=== PATIENT | female | born 1940 | race Caucasian/White ===

== ENCOUNTER 2024-11-21 14:16 | Inpatient (IN) ==
--- NOTE | 2024-11-21 15:02 | Emergency Department Note ---
Impression & Plan Acute UTI, Weakness, Confusion ED Provider Note Provider: Willie Puckett MD CHIEF COMPLAINT: Transient confusion and speech issues HISTORY OF PRESENT ILLNESS: Patient is a 84-year-old female history of hypertension presenting here today with family from a family reunion. Patient from the [place] area. Patient reports that this morning since around 8 AM she has had 2 episodes where she has had issues with speech and that she feels fatigued and maybe had some dizziness. Currently her speech is okay. Not had numbness or focal weakness. Some generalized weakness. Family states seems like at times he is a hard time getting her words out. Not syncopized or having chest pain. Evidently had an episode like this some years ago related to a UTI but denies urinary symptoms. Denies fever or cough. States her eyes still feel somewhat heavy. PAST MEDICAL HISTORY: As noted above MEDICATIONS: Reviewed medication list the patient presents with SOCIAL HISTORY: Lives in [place] PHYSICAL EXAM: GENERAL: alert and oriented in no acute distress on stretcher Head: normocephalic and atraumatic EYES: No injection, discharge or icterus. EOMI. NECK: Trachea midline. Good range of motion ENT: Mucous membranes pink and moist. LUNGS: Airway patent. No retractions. Breath sounds clear with good air entry bilaterally. HEART: Regular rate and rhythm. No chest wall tenderness ABDOMEN: Soft and non-tender, without guarding or rebound. SKIN: Acyanotic, warm, dry, without rashes EXTREMITIES: Without tenderness with 1+ bilateral lower extremity edema. NEUROLOGICAL: No focal deficits. No aphasia. No facial droop or slurred speech. Normal strength and tone in the extremities. Sensation to gross touch normal. Ambulatory. EK bpm sinus rhythm with sinus arrhythmia. No PVC. Some PACs. No acute ST segment elevation or depression. QTc 446. EK bpm normal sinus rhythm. No PVC or PAC. No acute ST segment elevation or depression with nonspecific T wave flattening. CONTINUOUS CARDIAC MONITORING: was ordered and showed a heart rate of 60s bpm in normal sinus rhythm with sinus arrhythmia Patient's laboratory studies and imaging reviewed. Differential includes Infection, dehydration, metabolic abnormality, hypo/hyperglycemia, electrolyte disturbance, anemia, hypoxia, cardiac sources, intracerebral event, toxicologic, neurologic, as well as other pathologies. IMPRESSION/MEDICAL DECISION MAKING: Patient with some transient aphasia by report but no other numbness or weakness. Has had some slight dizziness. Still feeling somewhat fatigued. Symptoms of some slight fatigue upon arrival but no other deficits reported. Given improvement did not make a stroke alert. Question possible TIA versus metabolic infectious abnormality. Labs are sent including urinalysis. CT of the head and CT angiograms were ordered. Blood work here without significant anemia or leukocytosis. No sick electrolyte abnormality signs of acute renal dysfunction. Urinalysis questions infection. Will cover with dose ceftriaxone for antibiotic coverage. No prior microbiology in the computer. May be causing her symptoms. CTs are completed and reports reviewed without significant vascular abnormality or intracranial hemorrhage abnormality. Incidental thyroid nodule noted recommended for follow-up. Did have a little bit of heartburn symptoms and increased dizziness and acid second EKG was obtained without significant finding. Given the waxing and waning the skin could be all related to the infection from the UTI but she does not appear septic. Family reports she has a history of somewhat similar with UTIs that have been difficult to clear in the past. No focal findings just generalized weakness and some slight confusion at times.. Recommend further evaluation or monitoring here as she lives alone to ensure she is improved. Discussed with patient and her family at bedside. They very much agree with this plan. Hospitalist team was consulted. DIAGNOSIS: Acute UTI, confusion/fatigue/weakness DISPOSITION: Hospitalist will evaluate Patient was agreeable with this plan. Past Med/Surg History Problem List (Updated 11/21/24 @ 17:19 by Willie Puckett M.D.) Confusion (Acute) Weakness (Acute) Acute UTI (Acute) Social History Smoking Status: Never smoker Feels Safe at Home: Yes Allergies Allergies Allergy/AdvReac Type Severity Reaction Status Date / Time amoxicillin Allergy Hives Verified 11/21/24 16:43 Home Meds Home Medications Medication Instructions Recorded Confirmed ascorbic acid (vitamin C) 250 mg 250 mg PO DAILY 11/21/24 11/21/24 tablet (Vitamin C) atorvastatin 10 mg tablet 10 mg PO DAILY 11/21/24 11/21/24 cholecalciferol (vitamin D3) 50 50 mcg PO DAILY 11/21/24 11/21/24 mcg (2,000 unit) tablet (Vitamin D3) escitalopram oxalate 10 mg tablet 10 mg PO DAILY 11/21/24 11/21/24 montelukast 10 mg tablet 10 mg PO HS 11/21/24 11/21/24 omeprazole 20 mg capsule,delayed 20 mg PO DAILY 11/21/24 11/21/24 release valsartan 80 mg tablet 80 mg PO DAILY 11/21/24 11/21/24 vitamin E (dl, acetate) 180 mg 180 mg PO DAILY 11/21/24 11/21/24 (400 unit) capsule Results & Data (ED) Vital Signs Vital Signs - 24 hr 11/21/24 14:17 11/21/24 14:25 11/21/24 14:46 Temperature 36.9 C Temperature Source Oral Pulse Rate 81 Pulse Rate [Right Brachial] 66 Pulse Rate from SpO2 Sensor Pulse Rhythm [Right Brachial] Regular Pulse Strength [Right Brachial] Normal Respiratory Rate 18 18 Respiratory Effort / Characteristics Non-Labored Respiratory Depth Normal Respiratory Pattern Regular Blood Pressure 152/68 H Blood Pressure [Right Arm] 129/75 Blood Pressure Mean 96 Blood Pressure Mean [Right Arm] 93 Blood Pressure Position Sitting Blood Pressure Position [Right Arm] Lying Pulse Oximetry 96 94 Oxygen Delivery Method Room Air Room Air Room Air Sepsis Recent Fever Within 48 Hours No Sepsis New/Unexplained Change in Mental Status Yes Sepsis Action Taken by Nursing No Action Required 11/21/24 15:12 11/21/24 15:20 11/21/24 15:21 Temperature Temperature Source Pulse Rate 69 65 67 Pulse Rate [Right Brachial] Pulse Rate from SpO2 Sensor 69 70 Pulse Rhythm [Right Brachial] Pulse Strength [Right Brachial] Respiratory Rate 31 H 15 Respiratory Effort / Characteristics Respiratory Depth Respiratory Pattern Blood Pressure 115/65 Blood Pressure [Right Arm] Blood Pressure Mean 83 Blood Pressure Mean [Right Arm] Blood Pressure Position Blood Pressure Position [Right Arm] Pulse Oximetry 91 95 Oxygen Delivery Method Sepsis Recent Fever Within 48 Hours Sepsis New/Unexplained Change in Mental Status Sepsis Action Taken by Nursing 11/21/24 15:30 11/21/24 15:46 11/21/24 15:48 Temperature Temperature Source Pulse Rate 63 65 86 Pulse Rate [Right Brachial] Pulse Rate from SpO2 Sensor 63 65 73 Pulse Rhythm [Right Brachial] Pulse Strength [Right Brachial] Respiratory Rate 12 13 16 Respiratory Effort / Characteristics Respiratory Depth Respiratory Pattern Blood Pressure 115/66 130/67 122/78 Blood Pressure [Right Arm] Blood Pressure Mean 94 80 92 Blood Pressure Mean [Right Arm] Blood Pressure Position Blood Pressure Position [Right Arm] Pulse Oximetry 93 91 92 Oxygen Delivery Method Sepsis Recent Fever Within 48 Hours Sepsis New/Unexplained Change in Mental Status Sepsis Action Taken by Nursing 11/21/24 16:15 11/21/24 16:21 11/21/24 16:30 Temperature Temperature Source Pulse Rate 64 132 H 62 Pulse Rate [Right Brachial] Pulse Rate from SpO2 Sensor 69 110 H 62 Pulse Rhythm [Right Brachial] Pulse Strength [Right Brachial] Respiratory Rate 14 17 14 Respiratory Effort / Characteristics Respiratory Depth Respiratory Pattern Blood Pressure 132/68 135/66 Blood Pressure [Right Arm] Blood Pressure Mean 86 101 Blood Pressure Mean [Right Arm] Blood Pressure Position Blood Pressure Position [Right Arm] Pulse Oximetry 95 93 95 Oxygen Delivery Method Sepsis Recent Fever Within 48 Hours Sepsis New/Unexplained Change in Mental Status Sepsis Action Taken by Nursing Laboratory Data 11/21/24 15:07 11/21/24 15:07 Lab Results 11/21/24 11/21/24 11/21/24 Range/Units 14:57 15:07 15:12 WBC 7.33 (4.8-10.8) K/ul RBC 4.91 (4.20-5.40) M/uL Hgb 14.2 (12.0-16.0) g/dl POC Hgb 14.3 (12.0-16.0) g/dl Hct 42.0 (37.0-47.0) % POC Hct 42 (37-47) % MCV 85.5 (80.0-100.0) fL MCH 28.9 (25.0-34.0) pg MCHC 33.8 (32.0-36.0) g/dL RDW Std Deviation 43.6 (36.4-46.3) fL RDW Coeff of Kenny 14.0 (11.5-14.5) % Plt Count 238 (130-400) K/uL MPV 10.9 (9.4-12.4) fL Immature Gran % (Auto) 0.3 % Neut % (Auto) 74.6 % Lymph % (Auto) 16.8 % [place] % (Auto) 6.1 % Eos % (Auto) 1.5 % Baso % (Auto) 0.7 % Neut # (Auto) 5.47 (1.40-6.50) K/uL Lymph # (Auto) 1.23 (1.20-3.40) K/uL [place] # (Auto) 0.45 (0.11-0.59) K/uL Eos # (Auto) 0.11 (0.00-0.50) K/uL Baso # (Auto) 0.05 (0.00-0.20) K/uL Immature Gran # (Auto) 0.02 (0.01-0.20) K/uL PT 12.3 H (9.0-12.0) Seconds INR 1.2 H (0.9-1.1) APTT 28 (21-31) Seconds PTT Ratio 1.0 POC Sodium 137 (135-144) mmol/L Sodium 136 (136-145) mmol/L POC Potassium 3.9 (3.3-5.0) mmol/L Potassium 4.0 (3.5-5.1) mmol/L POC Chloride 104 (101-112) mmol/L Chloride 103 (98-107) mmol/L Carbon Dioxide 25 (21-32) mmol/L POC Total CO2 24 (24-31) mmol/L Anion Gap 8 (3-11) POC Anion Gap 13.0 L (16-25) mmol/L POC BUN 18 (7-18) mg/dl BUN 18 (6-23) mg/dl Creatinine 0.89 (0.6-1.2) mg/dl POC Creatinine 0.9 (0.6-1.3) mg/dl Est Cr Clr Drug Dosing 45.1 ml/min eGFR 63.89 BUN/Creatinine Ratio 20.2 H (10-20) Glucose 148 H (70-99(Fasting)) mg/dl POC Glucose 148 H (70-99) mg/dl POC Glucose (other) 150 H (70-99) mg/dl Calcium 9.1 (8.6-10.3) mg/dl POC Ioniz Calcium Donal 1.11 L (1.12-1.32) mmol/l Magnesium 2.0 (1.7-2.4) mg/dl Total Bilirubin 0.4 (0.2-1.0) mg/dl AST 19 (13-39) U/L ALT 15 (7-52) U/L Alkaline Phosphatase 67 (34-104) U/L Troponin I High Sens 5.2 (0-14) pg/ml Total Protein 6.8 (6.0-8.3) gm/dl Albumin 3.8 (3.4-5.0) gm/dl Globulin 3.0 (2.5-4.0) gm/dl Albumin/Globulin Ratio 1.3 (0.9-2) Urine Color Yellow Urine Appearance Clear (Clear) Urine pH 6.0 (4.5-7.5) Ur Specific [place] 1.019 (1.000-1.030) Urine Protein Negative (Negative) Urine Glucose (UA) Negative (Negative) Urine Ketones Trace H (Negative) Urine Blood Negative (Negative) Urine Nitrite Negative (Negative) Urine Bilirubin Negative (Negative) Urine Urobilinogen Negative (Negative) Ur Leukocyte Esterase 2+ H (Negative) Urine WBC (Auto) 6-10 H (0-5) /hpf Urine RBC (Auto) 0-2 (0-2) /hpf U Hyaline Cast (Auto) 0-2 (0-2) /lpf U Epithel Cells (Auto) 0-2 (0-2) /hpf Urine Bacteria (Auto) None Seen (None Seen) Urine Comment Administered Medications Discontinued Medications Ioversol (Optiray 320 125ml) 119 ml IV ONCE ONE Stop: 11/21/24 16:05 Last Admin: 11/21/24 16:05 Dose: 119 ml Documented By: MAURO Imaging Data Radiologist's Impression: Head CT 11/21/24 14:[address] without contrast CT angiogram of the neck CT angiogram of the brain with contrast Provided History: Neuro deficit Comparison: None Technique: HEAD CT: Using multidetector thin collimation helical acquisition technique, axial, coronal and sagittal CT images from the skull base to the vertex were obtained without intravenous contrast. HEAD and NECK CTA: During rapid bolus intravenous injection of nonionic contrast material, axial images were obtained using thin collimation multidetector helical technique from the base of the neck through the of vertex of the head. This CT angiogram data was reconstructed at thin intervals with mild overlap. 3D reconstructions were obtained. The axial source images, multiplanar reformations, 3D reconstructions in both maximum intensity projection display and volume rendered models were reviewed. Dose reduction techniques were achieved by using automatic exposure control and/or adjustment of mA and/or kV according to patient size and/or use of iterative reconstruction technique. Findings: Head CT: There is no intracranial hemorrhage, mass effect, or midline shift. Hill/white matter differentiation in both cerebral hemispheres is preserved. Ventricles are proportionate to the cerebral sulci. Chronic calcifications in the basal ganglia and cerebellum. Head CTA demonstrates no aneurysm or stenosis of the major intracranial arteries. Neck CTA demonstrates no stenosis of the major cervical arteries. The origins of the great vessels from the aortic arch are patent. No mass is noted within the visualized portions of the cervical soft tissues or lung apices. Heterogeneous enlargement of the right thyroid gland, which measures 3.5 cm in diameter. Recommend follow-up thyroid ultrasound. Impression: 1. Head CTA demonstrates no aneurysm or stenosis of the major intracranial arteries, 2. Neck CTA demonstrates no stenosis of the major cervical arteries. 3. No intracranial hemorrhage on the noncontrast head CT. 4. Recommend follow-up thyroid ultrasound. Electronically signed by Dylon Head 11-21-2024 5:08 PM Head CTA 11/21/24 14:[address] without contrast CT angiogram of the neck CT angiogram of the brain with contrast Provided History: Neuro deficit Comparison: None Technique: HEAD CT: Using multidetector thin collimation helical acquisition technique, axial, coronal and sagittal CT images from the skull base to the vertex were obtained without intravenous contrast. HEAD and NECK CTA: During rapid bolus intravenous injection of nonionic contrast material, axial images were obtained using thin collimation multidetector helical technique from the base of the neck through the of vertex of the head. This CT angiogram data was reconstructed at thin intervals with mild overlap. 3D reconstructions were obtained. The axial source images, multiplanar reformations, 3D reconstructions in both maximum intensity projection display and volume rendered models were reviewed. Dose reduction techniques were achieved by using automatic exposure control and/or adjustment of mA and/or kV according to patient size and/or use of iterative reconstruction technique. Findings: Head CT: There is no intracranial hemorrhage, mass effect, or midline shift. Hill/white matter differentiation in both cerebral hemispheres is preserved. Ventricles are proportionate to the cerebral sulci. Chronic calcifications in the basal ganglia and cerebellum. Head CTA demonstrates no aneurysm or stenosis of the major intracranial arteries. Neck CTA demonstrates no stenosis of the major cervical arteries. The origins of the great vessels from the aortic arch are patent. No mass is noted within the visualized portions of the cervical soft tissues or lung apices. Heterogeneous enlargement of the right thyroid gland, which measures 3.5 cm in diameter. Recommend follow-up thyroid ultrasound. Impression: 1. Head CTA demonstrates no aneurysm or stenosis of the major intracranial arteries, 2. Neck CTA demonstrates no stenosis of the major cervical arteries. 3. No intracranial hemorrhage on the noncontrast head CT. 4. Recommend follow-up thyroid ultrasound. Electronically signed by Dylon Head 11-21-2024 5:08 PM Neck CTA 11/21/24 14:[address] without contrast CT angiogram of the neck CT angiogram of the brain with contrast Provided History: Neuro deficit Comparison: None Technique: HEAD CT: Using multidetector thin collimation helical acquisition technique, axial, coronal and sagittal CT images from the skull base to the vertex were obtained without intravenous contrast. HEAD and NECK CTA: During rapid bolus intravenous injection of nonionic contrast material, axial images were obtained using thin collimation multidetector helical technique from the base of the neck through the of vertex of the head. This CT angiogram data was reconstructed at thin intervals with mild overlap. 3D reconstructions were obtained. The axial source images, multiplanar reformations, 3D reconstructions in both maximum intensity projection display and volume rendered models were reviewed. Dose reduction techniques were achieved by using automatic exposure control and/or adjustment of mA and/or kV according to patient size and/or use of iterative reconstruction technique. Findings: Head CT: There is no intracranial hemorrhage, mass effect, or midline shift. Hill/white matter differentiation in both cerebral hemispheres is preserved. Ventricles are proportionate to the cerebral sulci. Chronic calcifications in the basal ganglia and cerebellum. Head CTA demonstrates no aneurysm or stenosis of the major intracranial arteries. Neck CTA demonstrates no stenosis of the major cervical arteries. The origins of the great vessels from the aortic arch are patent. No mass is noted within the visualized portions of the cervical soft tissues or lung apices. Heterogeneous enlargement of the right thyroid gland, which measures 3.5 cm in diameter. Recommend follow-up thyroid ultrasound. Impression: 1. Head CTA demonstrates no aneurysm or stenosis of the major intracranial arteries, 2. Neck CTA demonstrates no stenosis of the major cervical arteries. 3. No intracranial hemorrhage on the noncontrast head CT. 4. Recommend follow-up thyroid ultrasound. Electronically signed by Dylon Head 11-21-2024 5:08 PM Discharge Plan Visit Data Chief Complaint: Confusion Stated Complaint: DIZZY, LIGHTHEADED, CONFUSED ED Provider: Willie Puckett Discharge Problem: Acute UTI, Weakness, Confusion Patient Disposition: Being Evaluated by Hospitalist Condition: Fair Forms Stand Alone Forms: [facility] Prescriptions Prescriptions: No Action atorvastatin 10 mg tablet 10 mg PO DAILY valsartan 80 mg tablet 80 mg PO DAILY ascorbic acid (vitamin C) [Vitamin C] 250 mg Tablet 250 mg PO DAILY omeprazole 20 mg capsule,delayed release(DR/EC) 20 mg PO DAILY montelukast 10 mg tablet 10 mg PO HS escitalopram oxalate 10 mg tablet 10 mg PO DAILY cholecalciferol (vitamin D3) [Vitamin D3] 50 mcg (2,000 unit) Tablet 50 mcg PO DAILY vitamin E (dl, acetate) 180 mg (400 unit) Capsule 180 mg PO DAILY Referrals Referrals: PCP,NO [Physician] -
[2024-11-21 15:23] LABS: Hematocrit (blood only) 42.0 % (37.0-47.0); Hemoglobin 14.2 g/dl (12.0-16.0); Immature Granulocytes # (auto) 0.02 K/uL (0.01-0.20); Immature Granulocytes % (auto) 0.3 %; Mean Corpuscular Hemoglobin 28.9 pg (25.0-34.0); Mean Corpuscular Volume 85.5 fL (80.0-100.0); Platelet Count 238 K/uL (130-400); RDW Standard Deviation 43.6 fL (36.4-46.3); Red Blood Count 4.91 M/uL (4.20-5.40); White Blood Count 7.33 K/ul (4.8-10.8)
[2024-11-21 15:40] LABS: Alanine Aminotransferase 15.0 U/L (7-52); Albumin Globulin Ratio 1.3 (0.9-2); Albumin Level 3.8 gm/dl (3.4-5.0); Alkaline Phosphatase 67.0 U/L (34-104); Anion Gap 8.0 (3-11); Bilirubin,Total 0.4 mg/dl (0.2-1.0); Blood Urea Nitrogen 18.0 mg/dl (6-23); Calcium 9.1 mg/dl (8.6-10.3); Carbon Dioxide 25.0 mmol/L (21-32); Chloride 103.0 mmol/L (98-107); Creatinine Clr Calc Pharmacy 45.1 ml/min; Globulin 3.0 gm/dl (2.5-4.0); Glucose 148.0 mg/dl (70-99(Fasting)); Magnesium 2.0 mg/dl (1.7-2.4); Potassium 4.0 mmol/L (3.5-5.1); Sodium 136.0 mmol/L (136-145); Total Protein 6.8 gm/dl (6.0-8.3)
[2024-11-21 15:43] LABS: Appearance Urine Clear (Clear); Bacteria Urine Automated None Seen (None Seen); Cast Urine Automated 0-2 /lpf (0-2); Epithelial Cell Urine Auto 0-2 /hpf (0-2); Glucose Urine UA Negative (Negative); RBC Urine Automated 0-2 /hpf (0-2)
[2024-11-21] MEDS: OPTIRAY 320 125ml IV ONE (16:05)
[2024-11-21 16:12] LABS: INR 1.2 (0.9-1.1); Partial Thromboplastin Time 28 Seconds (21-31); Prothrombin Time 12.3 Seconds (9.0-12.0)
--- NOTE | 2024-11-21 17:08 | CT Scan Report ---
Head CT without contrast CT angiogram of the neck CT angiogram of the brain with contrast Provided History: Neuro deficit Comparison: None Technique: HEAD CT: Using multidetector thin collimation helical acquisition technique, axial, coronal and sagittal CT images from the skull base to the vertex were obtained without intravenous contrast. HEAD and NECK CTA: During rapid bolus intravenous injection of nonionic contrast material, axial images were obtained using thin collimation multidetector helical technique from the base of the neck through the of vertex of the head. This CT angiogram data was reconstructed at thin intervals with mild overlap. 3D reconstructions were obtained. The axial source images, multiplanar reformations, 3D reconstructions in both maximum intensity projection display and volume rendered models were reviewed. Dose reduction techniques were achieved by using automatic exposure control and/or adjustment of mA and/or kV according to patient size and/or use of iterative reconstruction technique. Findings: Head CT: There is no intracranial hemorrhage, mass effect, or midline shift. Hill/white matter differentiation in both cerebral hemispheres is preserved. Ventricles are proportionate to the cerebral sulci. Chronic calcifications in the basal ganglia and cerebellum. Head CTA demonstrates no aneurysm or stenosis of the major intracranial arteries. Neck CTA demonstrates no stenosis of the major cervical arteries. The origins of the great vessels from the aortic arch are patent. No mass is noted within the visualized portions of the cervical soft tissues or lung apices. Heterogeneous enlargement of the right thyroid gland, which measures 3.5 cm in diameter. Recommend follow-up thyroid ultrasound. Impression: 1. Head CTA demonstrates no aneurysm or stenosis of the major intracranial arteries, 2. Neck CTA demonstrates no stenosis of the major cervical arteries. 3. No intracranial hemorrhage on the noncontrast head CT. 4. Recommend follow-up thyroid ultrasound. Electronically signed by Dylon Head 11-21-2024 5:08 PM
--- NOTE | 2024-11-21 17:42 | History & Physical Report ---
Date of Service November 21, 2024 Assessment & Plan (1) Confusion: (2) Weakness: Plan The patient is an 84-year-old female who presented to the ED on 11/21/24 with concerns for episodes of confusion and expressive aphasia Rule out TIA/CVA: Differential diagnosis also includes seizures with intermittent episodes and aura Will check EEG, MRI brain with and without contrast, echo, stroke protocol Permissive hypertension, neurology consultation; NIH on exam 0; Daily aspirin started Head/neck CTA and head CT unremarkable; atorvastatin increased to 40 mg daily Also reports recent stroke workup 6 months ago for confusion which was negative Recurrent UTIs: Urinalysis today unremarkable, check bladder scans every shift Hx HTN: Managed on valsartan at home, can continue in the next 24 hours Incidental findings: Thyroid nodule Noted in neck CTA, history of thyroid cancer, thyroid ultrasound ordered Check TSH level in a.m. A total of 45 minutes was spent on chart review/reviewing diagnostic data/facilitating plan of care/discussion with consultants Full code DVT prophylaxis: Lovenox History of Present Illness Chief Complaint: Confusion, expressive aphasia Primary Care Provider: Rohini Ochoa PA-C The patient is a 84-year-old female with a past medical history of vitamin D deficiency, anxiety, asthma, GERD, thyroid ca s/p partial thyroidectomy - 20 years ago, HTN who presents to the ED on 11/21/24 with concerns of expressive aphasia and confusion. Pt reports that she had an "episode" this morning around 8 am where she feels confused and foggy. She is able to understand but unable to answer questions for a few minutes. She reports having spells like this every once in a while, last time it was a few months ago when she had a UTI. She reports it feeling like a hot spell before the episode starts. Denies any head trauma or seizures in the past. Reports being started on antibiotics for 2 months to prevent recurrent UTIs. Reports some burning after urination today. Reports some lower abdominal tenderness. Reports chronic urinary frequency. Denies any fevers/chills. Denies n/v/d. Denies flank pain. Denies CP or SOB. Denies numbness/tingling On arrival to the ED, labs fairly unremarkable, glucose mildly elevated 148, urinalysis unimpressive Head CT was negative for any stenosis of the major arteries, thyroid nodule noted, will need follow-up thyroid ultrasound The patient was given IV ceftriaxone in the ED for suspected UTI Patient will be admitted for further workup to rule out TIA versus CVA Allergies Allergy/AdvReac Type Severity Reaction Status Date / Time amoxicillin Allergy Hives Verified 11/21/24 16:43 Home Medications Medication Instructions Recorded Confirmed Type ascorbic acid (vitamin C) 250 mg 250 mg PO DAILY 11/21/24 11/21/24 History tablet (Vitamin C) atorvastatin 10 mg tablet 10 mg PO DAILY 11/21/24 11/21/24 History cholecalciferol (vitamin D3) 50 50 mcg PO DAILY 11/21/24 11/21/24 History mcg (2,000 unit) tablet (Vitamin D3) escitalopram oxalate 10 mg tablet 10 mg PO DAILY 11/21/24 11/21/24 History montelukast 10 mg tablet 10 mg PO HS 11/21/24 11/21/24 History omeprazole 20 mg capsule,delayed 20 mg PO DAILY 11/21/24 11/21/24 History release valsartan 80 mg tablet 80 mg PO DAILY 11/21/24 11/21/24 History vitamin E (dl, acetate) 180 mg 180 mg PO DAILY 11/21/24 11/21/24 History (400 unit) capsule Past Med/Surg History Problem List (Updated 11/21/24 @ 17:19 by Willie Puckett M.D.) Confusion (Acute) Weakness (Acute) Acute UTI (Acute) Social History Smoking Status: Never smoker Feels Safe at Home: Yes Review of Systems Review of Systems: All systems reviewed & are unremarkable except as noted in HPI & below Physical Exam Constitutional: WD/WN, vitals as above Eyes: PERRL, conjunctivae normal, anicteric sclerae ENMT: external ear and nose normal, oropharynx normal Neck: trachea midline, no thyromegaly Respiratory: normal respiratory effort, lungs clear to auscultation Cardiovascular: RRR, no murmur, no edema (trace edema b/l le ) Gastrointestinal (Abdomen): normal bowel sounds, soft, nontender, no hepatosplenomegaly Musculoskeletal: no cyanosis or clubbing, extremities motor strength 5/5 Skin: no rashes, warm and dry Neurologic: PERRL, EOMI, accommodation nl, no face palsy, no dysarthria Psychiatric: A+Ox3, euthymic affect Lymphatic: no cervical or axillary lymphadenopathy Results & Data Results & Data Vital Signs (Past 12 Hours) Vital Signs Temp Pulse Pulse Resp BP BP Pulse Ox 11/21/24 16:30 62 14 135/66 95 11/21/24 16:21 132 H 17 93 11/21/24 16:15 64 14 132/68 95 11/21/24 15:48 86 16 122/78 92 11/21/24 15:46 65 13 130/67 91 11/21/24 15:30 63 12 115/66 93 11/21/24 15:21 67 11/21/24 15:20 65 15 115/65 95 11/21/24 15:12 69 31 H 91 11/21/24 14:46 66 18 129/75 94 11/21/24 14:25 36.9 C 81 18 152/68 H 96 11/21/24 14:17 O2 Del Method 11/21/24 16:30 11/21/24 16:21 11/21/24 16:15 11/21/24 15:48 11/21/24 15:46 11/21/24 15:30 11/21/24 15:21 11/21/24 15:20 11/21/24 15:12 11/21/24 14:46 Room Air 11/21/24 14:25 Room Air 11/21/24 14:17 Room Air Diagnostic Findings Laboratory Results WBC 7.33 K/ul (4.8-10.8) 11/21/24 15:07 RBC 4.91 M/uL (4.20-5.40) 11/21/24 15:07 Hgb 14.2 g/dl (12.0-16.0) 11/21/24 15:07 POC Hgb 14.3 g/dl (12.0-16.0) 11/21/24 15:12 Hct 42.0 % (37.0-47.0) 11/21/24 15:07 POC Hct 42 % (37-47) 11/21/24 15:12 MCV 85.5 fL (80.0-100.0) 11/21/24 15:07 MCH 28.9 pg (25.0-34.0) 11/21/24 15:07 MCHC 33.8 g/dL (32.0-36.0) 11/21/24 15:07 RDW Std Deviation 43.6 fL (36.4-46.3) 11/21/24 15:07 RDW Coeff of Kenny 14.0 % (11.5-14.5) 11/21/24 15:07 Plt Count 238 K/uL (130-400) 11/21/24 15:07 MPV 10.9 fL (9.4-12.4) 11/21/24 15:07 Immature Gran % (Auto) 0.3 % 11/21/24 15:07 Neut % (Auto) 74.6 % 11/21/24 15:07 Lymph % (Auto) 16.8 % 11/21/24 15:07 Ferry % (Auto) 6.1 % 11/21/24 15:07 Eos % (Auto) 1.5 % 11/21/24 15:07 Baso % (Auto) 0.7 % 11/21/24 15:07 Neut # (Auto) 5.47 K/uL (1.40-6.50) 11/21/24 15:07 Lymph # (Auto) 1.23 K/uL (1.20-3.40) 11/21/24 15:07 Ferry # (Auto) 0.45 K/uL (0.11-0.59) 11/21/24 15:07 Eos # (Auto) 0.11 K/uL (0.00-0.50) 11/21/24 15:07 Baso # (Auto) 0.05 K/uL (0.00-0.20) 11/21/24 15:07 Immature Gran # (Auto) 0.02 K/uL (0.01-0.20) 11/21/24 15:07 PT 12.3 Seconds (9.0-12.0) H 11/21/24 15:07 INR 1.2 (0.9-1.1) H 11/21/24 15:07 APTT 28 Seconds (21-31) 11/21/24 15:07 PTT Ratio 1.0 11/21/24 15:07 POC Sodium 137 mmol/L (135-144) 11/21/24 15:12 Sodium 136 mmol/L (136-145) 11/21/24 15:07 POC Potassium 3.9 mmol/L (3.3-5.0) 11/21/24 15:12 Potassium 4.0 mmol/L (3.5-5.1) 11/21/24 15:07 POC Chloride 104 mmol/L (101-112) 11/21/24 15:12 Chloride 103 mmol/L (98-107) 11/21/24 15:07 Carbon Dioxide 25 mmol/L (21-32) 11/21/24 15:07 POC Total CO2 24 mmol/L (24-31) 11/21/24 15:12 Anion Gap 8 (3-11) 11/21/24 15:07 POC Anion Gap 13.0 mmol/L (16-25) L 11/21/24 15:12 POC BUN 18 mg/dl (7-18) 11/21/24 15:12 BUN 18 mg/dl (6-23) 11/21/24 15:07 Creatinine 0.89 mg/dl (0.6-1.2) 11/21/24 15:07 POC Creatinine 0.9 mg/dl (0.6-1.3) 11/21/24 15:12 Est Cr Clr Drug Dosing 45.1 ml/min 11/21/24 15:07 eGFR 63.89 11/21/24 15:07 BUN/Creatinine Ratio 20.2 (10-20) H 11/21/24 15:07 Glucose 148 mg/dl (70-99(Fasting)) H 11/21/24 15:07 POC Glucose 148 mg/dl (70-99) H 11/21/24 14:57 POC Glucose (other) 150 mg/dl (70-99) H 11/21/24 15:12 Calcium 9.1 mg/dl (8.6-10.3) 11/21/24 15:07 POC Ioniz Calcium Donal 1.11 mmol/l (1.12-1.32) L 11/21/24 15:12 Magnesium 2.0 mg/dl (1.7-2.4) 11/21/24 15:07 Total Bilirubin 0.4 mg/dl (0.2-1.0) 11/21/24 15:07 AST 19 U/L (13-39) 11/21/24 15:07 ALT 15 U/L (7-52) 11/21/24 15:07 Alkaline Phosphatase 67 U/L (34-104) 11/21/24 15:07 Troponin I High Sens 5.2 pg/ml (0-14) 11/21/24 15:07 Total Protein 6.8 gm/dl (6.0-8.3) 11/21/24 15:07 Albumin 3.8 gm/dl (3.4-5.0) 11/21/24 15:07 Globulin 3.0 gm/dl (2.5-4.0) 11/21/24 15:07 Albumin/Globulin Ratio 1.3 (0.9-2) 11/21/24 15:07 Urine Color Yellow 11/21/24 15:07 Urine Appearance Clear (Clear) 11/21/24 15:07 Urine pH 6.0 (4.5-7.5) 11/21/24 15:07 Ur Specific Van 1.019 (1.000-1.030) 11/21/24 15:07 Urine Protein Negative (Negative) 11/21/24 15:07 Urine Glucose (UA) Negative (Negative) 11/21/24 15:07 Urine Ketones Trace (Negative) H 11/21/24 15:07 Urine Blood Negative (Negative) 11/21/24 15:07 Urine Nitrite Negative (Negative) 11/21/24 15:07 Urine Bilirubin Negative (Negative) 11/21/24 15:07 Urine Urobilinogen Negative (Negative) 11/21/24 15:07 Ur Leukocyte Esterase 2+ (Negative) H 11/21/24 15:07 Urine WBC (Auto) 6-10 /hpf (0-5) H 11/21/24 15:07 Urine RBC (Auto) 0-2 /hpf (0-2) 11/21/24 15:07 U Hyaline Cast (Auto) 0-2 /lpf (0-2) 11/21/24 15:07 U Epithel Cells (Auto) 0-2 /hpf (0-2) 11/21/24 15:07 Urine Bacteria (Auto) None Seen (None Seen) 11/21/24 15:07 Urine Comment 11/21/24 15:[address] 11/21/24 14:[address] without contrast CT angiogram of the neck CT angiogram of the brain with contrast Provided History: Neuro deficit Comparison: None Technique: HEAD CT: Using multidetector thin collimation helical acquisition technique, axial, coronal and sagittal CT images from the skull base to the vertex were obtained without intravenous contrast. HEAD and NECK CTA: During rapid bolus intravenous injection of nonionic contrast material, axial images were obtained using thin collimation multidetector helical technique from the base of the neck through the of vertex of the head. This CT angiogram data was reconstructed at thin intervals with mild overlap. 3D reconstructions were obtained. The axial source images, multiplanar reformations, 3D reconstructions in both maximum intensity projection display and volume rendered models were reviewed. Dose reduction techniques were achieved by using automatic exposure control and/or adjustment of mA and/or kV according to patient size and/or use of iterative reconstruction technique. Findings: Head CT: There is no intracranial hemorrhage, mass effect, or midline shift. Hill/white matter differentiation in both cerebral hemispheres is preserved. Ventricles are proportionate to the cerebral sulci. Chronic calcifications in the basal ganglia and cerebellum. Head CTA demonstrates no aneurysm or stenosis of the major intracranial arteries. Neck CTA demonstrates no stenosis of the major cervical arteries. The origins of the great vessels from the aortic arch are patent. No mass is noted within the visualized portions of the cervical soft tissues or lung apices. Heterogeneous enlargement of the right thyroid gland, which measures 3.5 cm in diameter. Recommend follow-up thyroid ultrasound. Impression: 1. Head CTA demonstrates no aneurysm or stenosis of the major intracranial arteries, 2. Neck CTA demonstrates no stenosis of the major cervical arteries. 3. No intracranial hemorrhage on the noncontrast head CT. 4. Recommend follow-up thyroid ultrasound. Electronically signed by Dylon Head 11-21-2024 5:08 PM Head CTA 11/21/24 14:[address] without contrast CT angiogram of the neck CT angiogram of the brain with contrast Provided History: Neuro deficit Comparison: None Technique: HEAD CT: Using multidetector thin collimation helical acquisition technique, axial, coronal and sagittal CT images from the skull base to the vertex were obtained without intravenous contrast. HEAD and NECK CTA: During rapid bolus intravenous injection of nonionic contrast material, axial images were obtained using thin collimation multidetector helical technique from the base of the neck through the of vertex of the head. This CT angiogram data was reconstructed at thin intervals with mild overlap. 3D reconstructions were obtained. The axial source images, multiplanar reformations, 3D reconstructions in both maximum intensity projection display and volume rendered models were reviewed. Dose reduction techniques were achieved by using automatic exposure control and/or adjustment of mA and/or kV according to patient size and/or use of iterative reconstruction technique. Findings: Head CT: There is no intracranial hemorrhage, mass effect, or midline shift. Hill/white matter differentiation in both cerebral hemispheres is preserved. Ventricles are proportionate to the cerebral sulci. Chronic calcifications in the basal ganglia and cerebellum. Head CTA demonstrates no aneurysm or stenosis of the major intracranial arteries. Neck CTA demonstrates no stenosis of the major cervical arteries. The origins of the great vessels from the aortic arch are patent. No mass is noted within the visualized portions of the cervical soft tissues or lung apices. Heterogeneous enlargement of the right thyroid gland, which measures 3.5 cm in diameter. Recommend follow-up thyroid ultrasound. Impression: 1. Head CTA demonstrates no aneurysm or stenosis of the major intracranial arteries, 2. Neck CTA demonstrates no stenosis of the major cervical arteries. 3. No intracranial hemorrhage on the noncontrast head CT. 4. Recommend follow-up thyroid ultrasound. Electronically signed by Dylon Head 11-21-2024 5:08 PM Neck CTA 11/21/24 14:[address] without contrast CT angiogram of the neck CT angiogram of the brain with contrast Provided History: Neuro deficit Comparison: None Technique: HEAD CT: Using multidetector thin collimation helical acquisition technique, axial, coronal and sagittal CT images from the skull base to the vertex were obtained without intravenous contrast. HEAD and NECK CTA: During rapid bolus intravenous injection of nonionic contrast material, axial images were obtained using thin collimation multidetector helical technique from the base of the neck through the of vertex of the head. This CT angiogram data was reconstructed at thin intervals with mild overlap. 3D reconstructions were obtained. The axial source images, multiplanar reformations, 3D reconstructions in both maximum intensity projection display and volume rendered models were reviewed. Dose reduction techniques were achieved by using automatic exposure control and/or adjustment of mA and/or kV according to patient size and/or use of iterative reconstruction technique. Findings: Head CT: There is no intracranial hemorrhage, mass effect, or midline shift. Hill/white matter differentiation in both cerebral hemispheres is preserved. Ventricles are proportionate to the cerebral sulci. Chronic calcifications in the basal ganglia and cerebellum. Head CTA demonstrates no aneurysm or stenosis of the major intracranial arteries. Neck CTA demonstrates no stenosis of the major cervical arteries. The origins of the great vessels from the aortic arch are patent. No mass is noted within the visualized portions of the cervical soft tissues or lung apices. Heterogeneous enlargement of the right thyroid gland, which measures 3.5 cm in diameter. Recommend follow-up thyroid ultrasound. Impression: 1. Head CTA demonstrates no aneurysm or stenosis of the major intracranial arteries, 2. Neck CTA demonstrates no stenosis of the major cervical arteries. 3. No intracranial hemorrhage on the noncontrast head CT. 4. Recommend follow-up thyroid ultrasound. Electronically signed by Dylon Head 11-21-2024 5:08 PM Supervising Physician Co-Signing Physician Notes Attending Addendum: Case reviewed with the advanced practitioner. I have personally performed a history and physical examination on the patient. I have reviewed the advanced practitioner's documentation on the date of service referenced in note, and I agree with, and take responsibility for the plan of care. please refer to her notes for full details patient seen and examined, records reviewed by myself as well on exam, patient Seen resting in bed, comfortable, sitting up and watching TV Reports that she woke up this morning and after few minutes started to feel sensation of warmth, over urgent and bilateral Arms Followed by "mental fogginess", can understand when spoken to but unable to respond, "get words out" episode lasted for about 2 minutes She said she has had a total of 4 episodes of this today, Last 1 was at the ER denies headache, has some photophobia no focal weakness/numbness denies urinary symptoms except for frequency- chronic no other symptoms VS noted and reviewed oriented x 3, not in distress, speaks in sentences with no effort nor accessory muscle use normal rate, regular rhythm, no murmurs clear breath sounds bilaterally non distended, soft, nontender no bipedal edema, erythema, warmth no neuro deficits all labs, imaging noted and reviewed ASSESSMENT AND PLAN> RECURRENT EPISODES OF EXPRESSIVE APHASIA r/o TIA vs Acute CVA vs Partial Seizure CT head and angio of head and neck: no acute CVA check Brain MRI w and w/o contrast check EEG start ASA, continue Atorvastatin Neurology consult UA not suggestive of UTI THYROID ENLARGEMENT, RIGHT seen on CT head and neck (+) history of thyroid CA s/p thyroidectomy check thyroid US check TSH other diagnoses and plan of care as per advanced practitioner's notes I spent a total of 40 minutes coordinating, documenting, and providing care for this patient, excluding time spent in the performance of separately billed services or time spent by another provider/QHP. Asif Centeno MD
[2024-11-21] MEDS: cefTRIAXone SODIUM 2,000 MG/50 ML BAG IV STA (18:26)
[2024-11-21] MEDS: GADOBUTROL 65ML VIAL IV ONE (20:18)
[2024-11-21] MEDS ORDERED: ACETAMINOPHEN 325 MG TAB PO PRN (21:19)
[2024-11-21] MEDS ORDERED: PHARMACIST DISCHARGE MED REC CONSULT PRN (21:19)
[2024-11-21] MEDS ORDERED: HEPARIN SOD 5,000 UNIT/0.5 ML VIAL SQ SCH (22:00)
[2024-11-21] MEDS: MONTELUKAST SODIUM 10 MG TABLET PO SCH (22:07)
[2024-11-21] MEDS: ASPIRIN 81 MG CHEW PO STA (22:07)
--- NOTE | 2024-11-21 23:52 | Magnetic Resonance Report ---
Exam(s): MRI HEAD W/WO Contrast IV Amt: 7.5mL Gadavist given IV EXAM: MR Head Without and With Intravenous Contrast CLINICAL HISTORY: Reason for exam: cva/tia - ? seizures. TECHNIQUE: Magnetic resonance images of the head/brain without and with intravenous contrast in multiple planes. CONTRAST: Patient received 7.5mL Gadavist given IV of IV contrast COMPARISON: Prior head CT from November 21, 2024. FINDINGS: Brain: Mild nonspecific white matter changes. There is loss of the normal trilaminar architecture in the left the This. There is mild atrophy of the left fornix and mammillary body. No mass. No hemorrhage. No acute infarct. The flow voids at the base the brain are intact. No evidence of heterotopic randolph matter or cortical dysplasia. No evidence of abnormal enhancement. The dural venous sinuses are patent. Ventricles: Mild ventriculomegaly. Bones/joints: Unremarkable. No acute fracture. Sinuses: Unremarkable as visualized. No acute sinusitis. Mastoid air cells: Unremarkable as visualized. No mastoid effusion. Orbits: Bilateral lens replacements. IMPRESSION: No evidence of acute intracranial pathology. 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 Electronically signed by: Fay Moser MD 11/21/24 23:50 PM
--- NOTE | 2024-11-21 23:53 | Ultrasound Report ---
Exam(s): US THYROID EXAM: US Soft Tissues Head and Neck, Thyroid CLINICAL HISTORY: Reason for exam: enlarged thyroid - hx thyroid ca. TECHNIQUE: Real-time ultrasound scan of the thyroid gland and soft tissues of the neck with image documentation. COMPARISON: CTA 11/21/2024 FINDINGS: Left thyroid lobe: Left thyroid lobe measures 1.8 x 3.9 x 1.9 cm and contains underlying nodules. Left thyroid lower pole nodule measuring 2. 9 x 1.4 x 1.6 cm. This nodule is solid, hyperechoic, wider than tall, lobulated, and contains no echogenic foci. Right thyroid lobe: Right thyroid lobe measures 3.1 x 5.6 x 3.5 cm. Multiple underlying nodules which are indistinct and inseparable from one another. Isthmus: Thyroid isthmus measures 3 cm. No enlarged or calcified nodules. Lymph nodes: Unremarkable. No lymphadenopathy. IMPRESSION: Multinodular thyroid gland. Moderately suspicious left thyroid nodule measuring 2.9 x 1.4 x 1.6 cm. TI-RADS points: 5. TI-RADS category: TR4. FNA evaluation recommended based purely on sonographic appearance. However, given history of thyroid malignancy and given patient age, the decision to pursue thyroid biopsy should be made on a clinical basis. There are likely more suspicious nodules in the right thyroid lobe, suggested on reference CTA, but which are indistinct by ultrasound. Electronically signed by: Benedict Cisse M.D. 11/21/24 23:51 PM
[2024-11-22 06:26] LABS: Hematocrit (blood only) 42.7 % (37.0-47.0); Hemoglobin 14.1 g/dl (12.0-16.0); Immature Granulocytes # (auto) 0.02 K/uL (0.01-0.20); Immature Granulocytes % (auto) 0.3 %; Mean Corpuscular Hemoglobin 28.7 pg (25.0-34.0); Mean Corpuscular Volume 87.0 fL (80.0-100.0); Platelet Count 216 K/uL (130-400); RDW Standard Deviation 44.7 fL (36.4-46.3); Red Blood Count 4.91 M/uL (4.20-5.40); White Blood Count 7.93 K/ul (4.8-10.8)
[2024-11-22 06:47] LABS: Anion Gap 5.0 (3-11); Blood Urea Nitrogen 16.0 mg/dl (6-23); Calcium 9.5 mg/dl (8.6-10.3); Carbon Dioxide 30.0 mmol/L (21-32); Chloride 105.0 mmol/L (98-107); Cholesterol 165.0 mg/dl (0-200); Creatinine Clr Calc Pharmacy 52.2 ml/min; Glucose 96.0 mg/dl (70-99(Fasting)); HDL Cholesterol 47.0 mg/dl; Potassium 3.9 mmol/L (3.5-5.1); Sodium 140.0 mmol/L (136-145); Triglycerides 135.0 mg/dl (0-150)
[2024-11-22 07:01] LABS: Thyroid Stimulating Hormone 1.939 uIu/ml (0.300-4.500)
[2024-11-22 07:52] LABS: Hemoglobin A1C 6.1 % (4.5-5.6)
[2024-11-22] MEDS: ATORVASTATIN 40 MG TAB PO SCH (08:47)
[2024-11-22] MEDS: ESCITALOPRAM OXALATE 10 MG TAB PO SCH (08:47)
[2024-11-22] MEDS: CHOLECALCIFEROL 25 MCG (1000 UNITS) TAB PO SCH (08:47)
[2024-11-22] MEDS: ASPIRIN 81 MG ECTAB PO SCH (08:48)
[2024-11-22] MEDS: ASCORBIC ACID 500 MG TAB PO SCH (08:48)
[2024-11-22] MEDS: ENOXAPARIN INJ 40 MG/0.4 ML SYR SQ SCH (08:50)
--- NOTE | 2024-11-22 11:00 | Hospitalist Progress Note ---
Date of Service November 22, 2024 Assessment & Plan (1) Confusion: (2) Weakness: Plan The patient is an 84-year-old female who presented to the ED on 11/21/24 with concerns for episodes of confusion and expressive aphasia #Confusion/expressive aphasia -Similar episodes in the past when she had a UTI -She is endorsing urinary symptoms currently -UA + for LE and WBC -CTA, CTH no acute pathology -MRI brain without acute pathology -Very low suspicion for TIA or seizure -Likely mild metabolic encephalopathy due to UTI -Fully resolved Plan -Treat UTI as below -EEG in AM for completion -Hold off on neuro eval -Anticipate DC home tomorrow after EEG -DC Aspirin #UTI -Endorsing dysuria and burning after urination -Similar to prior UTIs. She believes she has a UTI -UA 2+ LE and WBC Plan -Treat as UTI given presentation -Resume CTX while hospitalized, deescalate to bactrim likely tomorrow #Thyroid mass -History of thyroid tumor s/p resection years ago in [place] -US thyroid here showing a 2.9 cm L thyroid nodule -D/w patient, recommended she get a biopsy as OP. She will d/w her PCP and her prior surgeon in [place] -She was informed of the concern that this is cancer. #HLD -Continue statin #HTN -Continue ARB I spent a total of 42 minutes coordinating, documenting, and providing care for this patient excluding time spent in the performance of separately billed services. This included personally reviewing all current laboratories and imaging studies, medical reconciliation, outpatient chart review and discussion with specialists Admission and Anticipated Discharge Date Admission Date: November 21, 2024 Subjective Feeling well today. her only complaint today is dysuria and burning after urination. Physical Exam Physical Exam: Vitals and labs reviewed General: Well appearing, NAD HEENT: EOMI, PERRLA Neck: Supple Cardiac: RRR no rubs gallops or murmurs Lungs: CTA no rhonchi wheezing or rales Abd: S NT ND BS positive : No melgar MSK: Full ROM. No obvious deformities Ext: No Edema cyanosis Skin: Warm, Dry Neuro: AOx3 No focal deficits. no tremors or asterixis. Psych: Normal Mood Results & Data Results & Data Vital Signs (Past 12 Hours) Vital Signs Temp Pulse Resp BP Pulse Ox O2 Del Method 11/22/24 08:00 36.7 C 73 16 149/70 H 96 Room Air 11/22/24 03:23 36.7 C 65 19 144/75 H 94 Room Air Laboratory Results Abnormal lab results 11/21/24 11/21/24 11/21/24 Range/Units 14:57 15:07 15:12 Gage # (Auto) (0.11-0.59) K/uL PT 12.3 H (9.0-12.0) Seconds INR 1.2 H (0.9-1.1) POC Anion Gap 13.0 L (16-25) mmol/L BUN/Creatinine Ratio 20.2 H (10-20) Glucose 148 H (70-99(Fasting)) mg/dl POC Glucose 148 H (70-99) mg/dl POC Glucose (other) 150 H (70-99) mg/dl Hemoglobin A1c (4.5-5.6) % POC Ioniz Calcium Donal 1.11 L (1.12-1.32) mmol/l Urine Ketones Trace H (Negative) Ur Leukocyte Esterase 2+ H (Negative) Urine WBC (Auto) 6-10 H (0-5) /hpf 11/22/24 Range/Units 05:26 Gage # (Auto) 0.77 H (0.11-0.59) K/uL PT (9.0-12.0) Seconds INR (0.9-1.1) POC Anion Gap (16-25) mmol/L BUN/Creatinine Ratio 20.3 H (10-20) Glucose (70-99(Fasting)) mg/dl POC Glucose (70-99) mg/dl POC Glucose (other) (70-99) mg/dl Hemoglobin A1c 6.1 H (4.5-5.6) % POC Ioniz Calcium Donal (1.12-1.32) mmol/l Urine Ketones (Negative) Ur Leukocyte Esterase (Negative) Urine WBC (Auto) (0-5) /hpf Diagnostic Findings Brain MRI 11/21/24 17:57 Exam(s): MRI HEAD W/WO Contrast IV Amt: 7.5mL Gadavist given IV EXAM: MR Head Without and With Intravenous Contrast CLINICAL HISTORY: Reason for exam: cva/tia - ? seizures. TECHNIQUE: Magnetic resonance images of the head/brain without and with intravenous contrast in multiple planes. CONTRAST: Patient received 7.5mL Gadavist given IV of IV contrast COMPARISON: Prior head CT from November 21, 2024. FINDINGS: Brain: Mild nonspecific white matter changes. There is loss of the normal trilaminar architecture in the left the This. There is mild atrophy of the left fornix and mammillary body. No mass. No hemorrhage. No acute infarct. The flow voids at the base the brain are intact. No evidence of heterotopic randolph matter or cortical dysplasia. No evidence of abnormal enhancement. The dural venous sinuses are patent. Ventricles: Mild ventriculomegaly. Bones/joints: Unremarkable. No acute fracture. Sinuses: Unremarkable as visualized. No acute sinusitis. Mastoid air cells: Unremarkable as visualized. No mastoid effusion. Orbits: Bilateral lens replacements. IMPRESSION: No evidence of acute intracranial pathology. 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 Electronically signed by: Fay Moser MD 11/21/24 23:50 PM Thyroid Ultrasound 11/21/24 18:01 Exam(s): US THYROID EXAM: US Soft Tissues Head and Neck, Thyroid CLINICAL HISTORY: Reason for exam: enlarged thyroid - hx thyroid ca. TECHNIQUE: Real-time ultrasound scan of the thyroid gland and soft tissues of the neck with image documentation. COMPARISON: CTA 11/21/2024 FINDINGS: Left thyroid lobe: Left thyroid lobe measures 1.8 x 3.9 x 1.9 cm and contains underlying nodules. Left thyroid lower pole nodule measuring 2. 9 x 1.4 x 1.6 cm. This nodule is solid, hyperechoic, wider than tall, lobulated, and contains no echogenic foci. Right thyroid lobe: Right thyroid lobe measures 3.1 x 5.6 x 3.5 cm. Multiple underlying nodules which are indistinct and inseparable from one another. Isthmus: Thyroid isthmus measures 3 cm. No enlarged or calcified nodules. Lymph nodes: Unremarkable. No lymphadenopathy. IMPRESSION: Multinodular thyroid gland. Moderately suspicious left thyroid nodule measuring 2.9 x 1.4 x 1.6 cm. TI-RADS points: 5. TI-RADS category: TR4. FNA evaluation recommended based purely on sonographic appearance. However, given history of thyroid malignancy and given patient age, the decision to pursue thyroid biopsy should be made on a clinical basis. There are likely more suspicious nodules in the right thyroid lobe, suggested on reference CTA, but which are indistinct by ultrasound. Electronically signed by: Benedict Cisse M.D. 11/21/24 23:51 PM
--- NOTE | 2024-11-22 11:52 | Electrocardiogram Report ---
Test Reason : Blood Pressure : */* mmHG Vent. Rate : 68 BPM Atrial Rate : 68 BPM P-R Int : 178 ms QRS Dur : 84 ms QT Int : 420 ms P-R-T Axes : 31 -13 -10 degrees QTcB Int : 446 ms Sinus rhythm Premature atrial complexes Minimal voltage criteria for LVH, may be normal variant ( R in aVL ) Poor R wave progression, consider anterior NM vs. lead placement vs. LVH Abnormal ECG No previous ECGs available Confirmed by Umesh Bajwa ([id number]) on 11/22/2024 11:52:05 AM Referred By: REFERRED SELF Confirmed By: Umesh Bajwa
--- NOTE | 2024-11-22 11:56 | Electrocardiogram Report ---
Test Reason : Blood Pressure : */* mmHG Vent. Rate : 64 BPM Atrial Rate : 64 BPM P-R Int : 178 ms QRS Dur : 90 ms QT Int : 428 ms P-R-T Axes : 76 -13 22 degrees QTcB Int : 441 ms Normal sinus rhythm Minimal voltage criteria for LVH, may be normal variant ( R in aVL ) Nonspecific T wave abnormality Abnormal ECG When compared with ECG of 21-Nov-2024 14:52, (unconfirmed) No significant change was found Confirmed by Umesh Bajwa ([id number]) on 11/22/2024 11:55:35 AM Referred By: REFERRED SELF Confirmed By: Umesh Bajwa
--- NOTE | 2024-11-22 12:03 | Electrocardiogram Report ---
Test Reason : Blood Pressure : */* mmHG Vent. Rate : 62 BPM Atrial Rate : 62 BPM P-R Int : 186 ms QRS Dur : 86 ms QT Int : 426 ms P-R-T Axes : 13 -2 -2 degrees QTcB Int : 432 ms Sinus rhythm with Premature atrial complexes in a pattern of bigeminy Cannot rule out Anterior infarct , age undetermined Abnormal ECG When compared with ECG of 21-Nov-2024 16:25, (unconfirmed) Premature atrial complexes are now Present Minimal criteria for Anterior infarct are now Present Nonspecific T wave abnormality no longer evident in Anterior leads Confirmed by Umesh Bajwa ([id number]) on 11/22/2024 12:03:01 PM Referred By: REFERRED SELF Confirmed By: Umesh Bajwa
--- NOTE | 2024-11-22 13:17 | XCELERA ---
[id number]
[2024-11-22] MEDS: cefTRIAXone SODIUM 1,000 MG/50 ML BAG IV SCH (16:24)
[2024-11-22] MEDS: MELATONIN 3 MG TAB PO PRN (21:57)
[2024-11-23 05:54] LABS: Hematocrit (blood only) 44.1 % (37.0-47.0); Hemoglobin 14.7 g/dl (12.0-16.0); Immature Granulocytes # (auto) 0.02 K/uL (0.01-0.20); Immature Granulocytes % (auto) 0.3 %; Mean Corpuscular Hemoglobin 28.9 pg (25.0-34.0); Mean Corpuscular Volume 86.8 fL (80.0-100.0); Platelet Count 218 K/uL (130-400); RDW Standard Deviation 44.5 fL (36.4-46.3); Red Blood Count 5.08 M/uL (4.20-5.40); White Blood Count 7.01 K/ul (4.8-10.8)
[2024-11-23 06:11] LABS: Anion Gap 7.0 (3-11); Blood Urea Nitrogen 21.0 mg/dl (6-23); Calcium 9.2 mg/dl (8.6-10.3); Carbon Dioxide 27.0 mmol/L (21-32); Chloride 106.0 mmol/L (98-107); Creatinine Clr Calc Pharmacy 45.3 ml/min; Glucose 97.0 mg/dl (70-99(Fasting)); Potassium 3.9 mmol/L (3.5-5.1); Sodium 140.0 mmol/L (136-145)
[2024-11-23 07:45] VITALS: O2SAT 93
[2024-11-23 10:55] VITALS: BP 110/63; PULSE 61; RESP 18; TEMP 98.1
--- NOTE | 2024-11-23 12:11 | Electroencephalogram ---
EEG Procedure Note Date of Service November 23, 2024 Start / End Times Start Time: 6:04 AM End Time: 6:24 AM Referring Physician Elva History Seizure-like episodes Home Medication List Medication Instructions Recorded Confirmed Type ascorbic acid (vitamin C) 250 mg 250 mg PO DAILY 11/21/24 11/21/24 History tablet (Vitamin C) atorvastatin 10 mg tablet 10 mg PO DAILY 11/21/24 11/21/24 History cholecalciferol (vitamin D3) 50 50 mcg PO DAILY 11/21/24 11/21/24 History mcg (2,000 unit) tablet (Vitamin D3) escitalopram oxalate 10 mg tablet 10 mg PO DAILY 11/21/24 11/21/24 History montelukast 10 mg tablet 10 mg PO HS 11/21/24 11/21/24 History omeprazole 20 mg capsule,delayed 20 mg PO DAILY 11/21/24 11/21/24 History release valsartan 80 mg tablet 80 mg PO DAILY 11/21/24 11/21/24 History vitamin E (dl, acetate) 180 mg 180 mg PO DAILY 11/21/24 11/21/24 History (400 unit) capsule Inpatient Medication List Aspirin (Aspirin 81 Mg Ectab) 81 mg PO QAM [facility] Stop: 12/22/24 08:59 Last Admin: 11/23/24 08:00 Dose: 81 mg Documented By: Admin: 11/22/24 08:48 Dose: 81 mg Documented By: SONYA Atorvastatin Calcium (Atorvastatin 40 Mg Tab) 40 mg PO DAILY [facility] Stop: 12/22/24 08:59 Last Admin: 11/23/24 08:00 Dose: 40 mg Documented By: Admin: 11/22/24 08:47 Dose: 40 mg Documented By: SONYA Enoxaparin Sodium (Enoxaparin Inj 40 Mg/0.4 Ml Syr) 40 mg SQ QAM [facility] Stop: 12/22/24 08:59 Last Admin: 11/23/24 08:01 Dose: Not Given Documented By: Admin: 11/22/24 08:50 Dose: 40 mg Documented By: SONYA Escitalopram Oxalate (Escitalopram Oxalate 10 Mg Tab) 10 mg PO DAILY [facility] Stop: 12/22/24 08:59 Last Admin: 11/23/24 08:00 Dose: 10 mg Documented By: Admin: 11/22/24 08:47 Dose: 10 mg Documented By: SONYA Ceftriaxone Sodium (Rocephin) 1,000 mg in 50 mls @ 100 mls/hr IV Q24H [facility] Stop: 11/27/24 16:59 Last Infusion: 11/22/24 16:56 Dose: Infused Documented By: Admin: 11/22/24 16:24 Dose: 100 mls/hr Documented By: SONYA Melatonin (Melatonin 3 Mg Tab) 6 mg PO HS PRN PRN Reason: Sleep Stop: 12/22/24 21:23 Last Admin: 11/22/24 21:57 Dose: 6 mg Documented By: CANDICE Montelukast Sodium (Montelukast Sodium 10 Mg Tablet) 10 mg PO HS [facility] Stop: 12/21/24 21:18 Last Admin: 11/22/24 19:42 Dose: 10 mg Documented By: Admin: 11/21/24 22:07 Dose: 10 mg Documented By: SEBAS Pantoprazole Sodium (Pantoprazole 40 Mg Tab) 40 mg PO DAILY [facility] Stop: 12/22/24 08:59 Last Admin: 11/23/24 08:00 Dose: 40 mg Documented By: Admin: 11/22/24 08:47 Dose: 40 mg Documented By: SONYA Vitamin D (Cholecalciferol 25 Mcg (1000 Units) Tab) 50 mcg PO DAILY [facility] Stop: 12/22/24 08:59 Last Admin: 11/23/24 08:00 Dose: 50 mcg Documented By: Admin: 11/22/24 08:47 Dose: 50 mcg Documented By: SONYA Discontinued Medications Ascorbic Acid (Ascorbic Acid 500 Mg Tab) 250 mg PO DAILY [facility] Stop: 12/22/24 08:59 Last Admin: 11/22/24 08:48 Dose: 250 mg Documented By: SONYA Aspirin (Aspirin 81 Mg Chew) 324 mg PO NOW STA Stop: 11/21/24 21:20 Last Admin: 11/21/24 22:07 Dose: 324 mg Documented By: SEBAS Gadobutrol (Gadobutrol 65ml Vial) 7.5 ml IV ONCE ONE Stop: 11/21/24 20:19 Last Admin: 11/21/24 20:18 Dose: 7.5 ml Documented By: KAREN Ceftriaxone Sodium (Rocephin) 2,000 mg in 50 mls @ 100 mls/hr IV NOW STA Stop: 11/21/24 17:40 Last Infusion: 11/21/24 19:17 Dose: Infused Documented By: CAROL ANN Admin: 11/21/24 18:26 Dose: 100 mls/hr Documented By: TIMMY Ioversol (Optiray 320 125ml) 119 ml IV ONCE ONE Stop: 11/21/24 16:05 Last Admin: 11/21/24 16:05 Dose: 119 ml Documented By: MAURO Description This is a 21 electrode EEG with a single channel dedicated to limited EKG. The electrodes were placed in accordance with the International 10-20 system. Interpretation There is a posterior dominant rhythm of 8 to 9 Hz which is symmetrically distributed and attenuates with eye opening. There is a normal anterior to posterior organization. Photic stimulation is unremarkable. Hyperventilation is not performed. There is a symmetric frontal beta rhythm. There are intermittent left frontal sharps. There is no focal slowing. Clinical Correlation Borderline abnormal awake/drowsy EEG with left frontal sharps, potentially consistent with underlying focal neuronal irritability. The finding is nonspecific. If there is clinical concern for recurrent focal seizure activity in this patient, may consider starting an antiseizure medication. [facility] EEG Procedure Codes Indication for Procedure (1) Confusion: (2) Seizure-like activity: Neurology Neurology: 25536 EEG include record awake & drowsy
--- NOTE | 2024-11-23 13:22 | Discharge Summary ---
Discharge Summary Date of Service November 23, 2024 Principal Dx & Hospital Course #1 = Principal Diagnosis (1) Confusion: (2) Weakness: Plan The patient is an 84-year-old female who presented to the ED on 11/21/24 with concerns for episodes of confusion and expressive aphasia. Lasted only for a few minutes. She did not lose consciousness, have tremors, incontinence of tongue biting. She had a similar episode earlier this year when she was diagnosed with a UTI. She had similar urinary symptoms this admission, mostly dysuria. UA positive for 2+ LE and WBCs, consistent with UTI given her symptoms. She completed 3 days of IV ceftriaxone. Due to the aphasia, stroke workup obtained. MRI brain without intracranial pathology. TTE normal EF, grade I diastolic dysfunction. She had no evidence of CHF. EEG done which was negative for epileptiform discharges. IT did show L frontal sharp waves which is non specific. She displayed no s/s seizure, very low suspicion for TIA or seizure. Since she had a similar presentation earlier, likely mild metabolic encephalopathy secondary to UTI. She feels well and wishes to be discharged. Vitals and labs are stable. Of note, incidental thyroid mass described as below. discussed with patient the risk of cancer and she will f/u with her PCP and previous thyroid surgeon in [place]. #Confusion/expressive aphasia -Similar episodes in the past when she had a UTI -She is endorsing urinary symptoms currently -UA + for LE and WBC -CTA, CTH no acute pathology -MRI brain without acute pathology -Very low suspicion for TIA or seizure -Likely mild metabolic encephalopathy due to UTI -Fully resolved Plan -Treat UTI as below -EEG in AM for completion -Hold off on neuro eval -Anticipate DC home tomorrow after EEG -DC Aspirin #UTI -Endorsing dysuria and burning after urination -Similar to prior UTIs. She believes she has a UTI -UA 2+ LE and WBC Plan -Treat as UTI given presentation -Resume CTX while hospitalized, deescalate to bactrim likely tomorrow #Thyroid mass -History of thyroid tumor s/p resection years ago in [place] -US thyroid here showing a 2.9 cm L thyroid nodule -D/w patient, recommended she get a biopsy as OP. She will d/w her PCP and her prior surgeon in [place] -She was informed of the concern that this is cancer. #HLD -Continue statin #HTN -Continue ARB I spent a total of 39 minutes coordinating, documenting, and providing care for this patient excluding time spent in the performance of separately billed services. This included personally reviewing all current laboratories and imaging studies, medical reconciliation, outpatient chart review and discussion with specialists Notes For Next Care Provider Medication Changes From Visit none Admission HPI Per Admitting Provider The patient is a 84-year-old female with a past medical history of vitamin D deficiency, anxiety, asthma, GERD, thyroid ca s/p partial thyroidectomy - 20 years ago, HTN who presents to the ED on 11/21/24 with concerns of expressive aphasia and confusion. Pt reports that she had an "episode" this morning around 8 am where she feels confused and foggy. She is able to understand but unable to answer questions for a few minutes. She reports having spells like this every once in a while, last time it was a few months ago when she had a UTI. She reports it feeling like a hot spell before the episode starts. Denies any head trauma or seizures in the past. Reports being started on antibiotics for 2 months to prevent recurrent UTIs. Reports some burning after urination today. Reports some lower abdominal tenderness. Reports chronic urinary frequency. Denies any fevers/chills. Denies n/v/d. Denies flank pain. Denies CP or SOB. Denies numbness/tingling On arrival to the ED, labs fairly unremarkable, glucose mildly elevated 148, urinalysis unimpressive Head CT was negative for any stenosis of the major arteries, thyroid nodule noted, will need follow-up thyroid ultrasound The patient was given IV ceftriaxone in the ED for suspected UTI Patient will be admitted for further workup to rule out TIA versus CVA Discharge Exam Vitals and labs reviewed General: Well appearing, NAD HEENT: EOMI, PERRLA No tongue lesions Neck: Supple Cardiac: RRR no rubs gallops or murmurs Lungs: CTA no rhonchi wheezing or rales Abd: S NT ND BS positive : Deffered MSK: Full ROM. No obvious deformities Ext: No Edema cyanosis Skin: Warm, Dry Neuro: AOx3 No focal deficits. no tremors or asterixis. Psych: Normal Mood Updated Medication List Medication Instructions Recorded Confirmed Type ascorbic acid (vitamin C) 250 mg 250 mg PO DAILY 11/21/24 11/21/24 History tablet (Vitamin C) atorvastatin 10 mg tablet 10 mg PO DAILY 11/21/24 11/21/24 History cholecalciferol (vitamin D3) 50 50 mcg PO DAILY 11/21/24 11/21/24 History mcg (2,000 unit) tablet (Vitamin D3) escitalopram oxalate 10 mg tablet 10 mg PO DAILY 11/21/24 11/21/24 History montelukast 10 mg tablet 10 mg PO HS 11/21/24 11/21/24 History omeprazole 20 mg capsule,delayed 20 mg PO DAILY 11/21/24 11/21/24 History release valsartan 80 mg tablet 80 mg PO DAILY 11/21/24 11/21/24 History vitamin E (dl, acetate) 180 mg 180 mg PO DAILY 11/21/24 11/21/24 History (400 unit) capsule Hospital Stay Data Consultations 11/21/24 17:17 ED Decision to Admit Stat Diagnostic Imagining Performed 11/21/24 14:46 CT angio head w con Stat CT angio neck with con Stat CT head/brain wo con Stat 11/21/24 17:57 MR brain seizure wo/w con Routine 11/21/24 18:01 US thyroid Urgent Pending Results Patient Have Any Pending Studies at Discharge: No Discharge Instructions Given to Patient (Per Discharging Provider) You were admitted for confusion, difficulty speaking in the setting of a UTI, similar to previous episode. Your MRI brain was without any stroke. You completed a full 3 days of IV antibiotics. please notify your PCP or return to ED if your urinary symptoms do not fully resolved. Return to ED should you have another episode of confusion. Should this happen again, i would recommend you see a neurologist as well. Please notify your PCP or your previous thyroid surgeon in [place] about the thyroid lesions found during hospitalization Total Time Total Time Spent Total Time Spent (In Minutes): 39
--- NOTE | 2024-11-23 15:10 | Electrocardiogram Report ---
Test Reason : Blood Pressure : */* mmHG Vent. Rate : 62 BPM Atrial Rate : 62 BPM P-R Int : 202 ms QRS Dur : 86 ms QT Int : 432 ms P-R-T Axes : 34 -8 -5 degrees QTcB Int : 438 ms Sinus rhythm with Premature atrial complexes in a pattern of bigeminy Possible Anterior infarct (cited on or before 22-Nov-2024) Abnormal ECG When compared with ECG of 22-Nov-2024 05:05, No significant change was found Confirmed by Umesh Bajwa ([id number]) on 11/23/2024 3:10:25 PM Referred By: REFERRED SELF Confirmed By: Umesh Bajwa
== END 2024-11-23 13:53 | disposition home or self-care (01) | DRG 689 ==
LOC: ED 14:16 → 2S 17:35 → SUATTDRO 17:35 → 2S 20:46